=== PATIENT | female | born 1935 | race Caucasian/White ===

== ENCOUNTER → 2016-11-06 | Outpatient (CLI) | payer MEDICARE, OTHER ==
[~2016-11-06] MED LIST: AMLO5TAB PO; AMLODIPINE BES2.5 MG PO; ATENOLOL50 MG; CARVEDILOL6.25 MG PO; CIPRO 500MG TA500 MG PO; CLOPIDOGREL75 M2; DONEPEZIL 10MG10 MG PO; ENOXAPARIN30 MG/0.3 SC; HYDROCHLOROTHIA25 M1 PO; KLOR-CON M2020 MEQ PO; LISINOPRIL 20MG20 MG PO; METOPROLOL 25 M25 MG PO; METOPROLOL SUCC25 M1 PO; METOPROLOL SUCC25 M2 PO; MIDODRINE HCL2.5 MG PO; MIRALAX17 GM PO; RAMIPRIL10 MG PO
[2016-11-06 14:02] LABS: ABO BLOOD TYPE O; RH BLOOD TYPE NEGATIVE
[2016-11-07 01:36] LABS: ANTIHUMAN GLOB CROSSMATCH COMPAT
== END ==
LOC: LAB 10:31
PROVIDERS: Orthopaedic Surgery
DX: M17.12 Unilateral primary osteoarthritis, left knee (principal); Z01.818 Encounter for other preprocedural examination